=== PATIENT | female | born 1950 | race African-American/Black ===

== ENCOUNTER 2018-07-23 16:08 | Inpatient (IN) | payer MEDICARE, MEDICAID ==
[~2018-07-23] VITALS: Ht 152.4 cm; Wt 65.3 kg
[2018-07-23] MEDS ORDERED: ALBUTEROL (0.083%) 2.5MG/3ML NEB HHN STA (16:23)
[2018-07-23] MEDS ORDERED: METHYLPREDNISOLONE SOD SUCC 125 MG/2 ML VIAL IV STA (16:23)
[2018-07-23] MEDS ORDERED: ACETAMINOPHEN 325MG TABLET PO STA (17:02)
[2018-07-23] MEDS ORDERED: AZITHROMYCIN 500 MG in DEXT 5% WATER 250 ML IV ONE (17:15)
[2018-07-23] MEDS ORDERED: CEFTRIAXONE 1 G PREMIX 50 ML IV ONE (17:15)
[2018-07-23 17:23] LABS: CHLORIDE 100 mEq/L (98-107)
[2018-07-23 17:25] LABS: BASOPHILS % 0.2 % (0.0-2.0); HEMATOCRIT. 31.5 % (36.0-48.0); LYMPHOCYTES % 14.8 % (20.0-50.0); MEAN CORPUSCULAR HEMOGLOBIN 26.9 pg (28.0-32.0); MEAN CORPUSCULAR VOLUME 85.1 fL (81.0-99.0); MEAN PLATELET VOLUME 7.3 fl (7.4-10.4); PLATELET 487 x1000/uL (130-400); RED BLOOD CELL COUNT 3.71 mill/uL (4.2-5.4); RED CELL DISTRIBUTION WIDTH 20.3 % (11.6-14.6)
[2018-07-23] MEDS ORDERED: POTASSIUM CHLORIDE 20MEQ TABLET SR PO ONE ×2 (17:45)
[2018-07-23] MEDS ORDERED: MAGNESIUM/ALUMINUM HYDROXIDE/SIMETHICONE 30ML UDC PO PRN (19:00)
[2018-07-23] MEDS ORDERED: ACETAMINOPHEN 325MG TABLET PO PRN (19:00)
[2018-07-23] MEDS ORDERED: CLONIDINE 0.1MG TABLET PO PRN (19:00)
[2018-07-23] MEDS ORDERED: LORAZEPAM 0.5MG TABLET PO PRN (19:00)
[2018-07-23] MEDS ORDERED: ZOLPIDEM TARTRATE 5MG TABLET PO PRN (19:00)
[2018-07-23] MEDS ORDERED: ONDANSETRON HCL 4MG/2ML INJ IV PRN (19:00)
[2018-07-23] MEDS ORDERED: NA PHOS,M-B/NA PHOS,DI-BA ENEMA 118ML PR PRN (19:00)
[2018-07-23] MEDS ORDERED: DOCUSATE SODIUM 100MG CAPSULE PO PRN (19:00)
[2018-07-23 21:00] VITALS: BP 118/56
[2018-07-23 21:16] LABS: ETHANOL BLOOD < 10 mg/dL
[2018-07-23 21:19] LABS: LDL CHOLESTEROL 47 mg/dL (5-100)
[2018-07-23 21:21] LABS: HDL CHOLESTEROL 57 mg/dL (40-59)
[2018-07-23] MEDS ORDERED: POTASSIUM CHLORIDE 20MEQ TABLET SR PO NR (21:54)
[2018-07-23] MEDS ORDERED: KCL 20MEQ/100ML PREMIX 100 ML IV NR (23:00)
[2018-07-23] MEDS: OSELTAMIVIR 75MG CAPSULE PO SCH (23:06)
[2018-07-23] MEDS: GUAIFENESIN/DM 600MG/30MG ER TAB 12HR PO SCH (23:06)
[2018-07-23] MEDS: FAMOTIDINE 20MG TABLET PO SCH (23:06)
[2018-07-23] MEDS: ASCORBIC ACID 500 MG TABLET PO SCH (23:06)
[2018-07-23] MEDS: TRAMADOL 50MG TABLET PO PRN (23:08)
[2018-07-24] VITALS: BP 157/72
[2018-07-24] MEDS ORDERED: ASPI-1159 PO (00:21)
[2018-07-24] MEDS ORDERED: LOSA50TA20 PO (00:21)
[2018-07-24] MEDS ORDERED: ATOR20TA65 PO (00:21)
[2018-07-24 01:14] LABS: CREATINE KINASE 37 IU/L (26-192)
[2018-07-24 01:16] LABS: CREATINE KINASE MB FRACTION < 1.0 ng/mL (0.5-3.6)
[2018-07-24 04:00] VITALS: BP 127/57
[2018-07-24] MEDS: GUAIFENESIN 200MG/10ML SUGAR FREE UDC PO PRN ×2 (04:45→16:34)
[2018-07-24] MEDS: KETOROLAC 15MG/ML VIAL IV PRN ×2 (04:46→21:40)
[2018-07-24 06:19] LABS: CLARITY URINE TURBID (CLEAR); COLOR URINE YELLOW (YELLOW); KETONES URINE TRACE (NEGATIVE); LEUKOCYTE ESTERASE URINE 3+ (NEGATIVE); NITRITE URINE NEGATIVE (NEGATIVE); OCCULT BLOOD URINE 3+ (NEGATIVE); PH URINE 5.5 (4.5-8.0); PROTEIN URINE 1+ (NEGATIVE); UROBILINOGEN URINE 0.2 E.U./dL (0.2-1.0)
[2018-07-24 06:32] LABS: *AMPHETAMINES SCREEN URINE NEGATIVE (NEGATIVE); *BARBITURATES SCREEN URINE NEGATIVE (NEGATIVE); *BENZODIAZEPINES SCREEN URINE NEGATIVE (NEGATIVE); *COCAINE SCREEN URINE NEGATIVE (NEGATIVE)
[2018-07-24 06:33] LABS: CANNABINOID URINE SCREEN NEGATIVE (NEGATIVE); METHADONE URINE SCREEN NEGATIVE (NEGATIVE); OPIATES URINE SCREEN NEGATIVE (NEGATIVE); PHENCYCLIDINE URINE SCREEN NEGATIVE (NEGATIVE)
[2018-07-24 07:53] LABS: CREATINE KINASE 35 IU/L (26-192)
[2018-07-24 07:55] LABS: CREATINE KINASE MB FRACTION < 1.0 ng/mL (0.5-3.6)
[2018-07-24 08:00] VITALS: BP 127/65
[2018-07-24] MEDS: IPRATROPIUM/ALBUTEROL 0.5-3(2.5)MG/3ML NEB INH PRN ×2 (09:10→14:57)
[2018-07-24] MEDS: ENOXAPARIN 40MG/0.4ML SYR SUBCUT SCH (09:19)
[2018-07-24] MEDS: GUAIFENESIN/DM 600MG/30MG ER TAB 12HR PO SCH ×2 (09:19→20:43)
[2018-07-24] MEDS: FAMOTIDINE 20MG TABLET PO SCH (09:20)
[2018-07-24] MEDS: ZINC SULFATE 220 MG ( 50 ) CAPSULE PO SCH (09:20)
[2018-07-24] MEDS: OSELTAMIVIR 75MG CAPSULE PO SCH (09:20)
[2018-07-24] MEDS: ASPIRIN 325MG EC TABLET PO SCH (09:21)
[2018-07-24] MEDS: ASCORBIC ACID 500 MG TABLET PO SCH ×2 (09:21→20:43)
[2018-07-24] MEDS ORDERED: SODIUM CHLORIDE 0.9% 1000ML BAG (SEPSIS BOLUS) IV ONE (09:45)
[2018-07-24] MEDS ORDERED: SODIUM CHLORIDE 0.9% 1,000 ML IV SCH (09:45)
[2018-07-24 12:00] VITALS: BP 127/54
[2018-07-24] MEDS: CEFTRIAXONE 1 G PREMIX 50 ML IV SCH (14:16)
[2018-07-24] MEDS: AZITHROMYCIN 500 MG in DEXT 5% WATER 250 ML IV SCH (15:00)
[2018-07-24 16:00] VITALS: BP 129/60
[2018-07-24] MEDS ORDERED: CEFTRIAXONE 1,000 MG in DEXTROSE 5% WATER 50 ML IV SCH (17:00)
[2018-07-24] MEDS ORDERED: AZITHROMYCIN 500 MG in DEXT 5% WATER 250 ML IV SCH (18:00)
[2018-07-24 20:00] VITALS: BP 139/69
[2018-07-24] MEDS: OSELTAMIVIR 30MG CAPSULE PO SCH (23:41)
[2018-07-25] VITALS: BP 147/75
[2018-07-25 04:00] VITALS: BP 158/85
[2018-07-25 07:18] LABS: HEMATOCRIT. 23.2 % (36.0-48.0); HEMOGLOBIN. 7.5 g/dL (12.0-16.0); MEAN CORPUSCULAR HEMOGLOBIN 27.3 pg (28.0-32.0); MEAN CORPUSCULAR VOLUME 84.7 fL (81.0-99.0); MEAN PLATELET VOLUME 7.5 fl (7.4-10.4); PLATELET 382 x1000/uL (130-400); RED BLOOD CELL COUNT 2.74 mill/uL (4.2-5.4); RED CELL DISTRIBUTION WIDTH 19.8 % (11.6-14.6)
[2018-07-25 07:28] LABS: CHLORIDE 107 mEq/L (98-107)
[2018-07-25 07:50] VITALS: BP 142/74
[2018-07-25] MEDS: ASCORBIC ACID 500 MG TABLET PO SCH ×2 (08:47→21:17)
[2018-07-25] MEDS: ZINC SULFATE 220 MG ( 50 ) CAPSULE PO SCH (08:47)
[2018-07-25] MEDS: ASPIRIN 325MG EC TABLET PO SCH (08:47)
[2018-07-25] MEDS: GUAIFENESIN/DM 600MG/30MG ER TAB 12HR PO SCH ×2 (08:48→21:17)
[2018-07-25] MEDS: FAMOTIDINE 20MG TABLET PO SCH (08:48)
[2018-07-25] MEDS: OSELTAMIVIR 30MG CAPSULE PO SCH ×2 (08:48→21:17)
[2018-07-25] MEDS: ENOXAPARIN 40MG/0.4ML SYR SUBCUT SCH (09:00)
[2018-07-25] MEDS: KETOROLAC 15MG/ML VIAL IV PRN (09:45)
[2018-07-25] MEDS ORDERED: POTASSIUM CHLORIDE 20MEQ TABLET SR PO NR (12:00)
[2018-07-25 12:10] VITALS: BP 157/80
[2018-07-25] MEDS: GUAIFENESIN 200MG/10ML SUGAR FREE UDC PO PRN (12:14)
[2018-07-25] MEDS: CEFTRIAXONE 1 G PREMIX 50 ML IV SCH (13:19)
[2018-07-25] MEDS: DILTIAZEM HCL 60MG TABLET PO SCH ×2 (13:19→21:19)
[2018-07-25] MEDS: TRAMADOL 50MG TABLET PO PRN (13:28)
[2018-07-25] MEDS: AZITHROMYCIN 500 MG in DEXT 5% WATER 250 ML IV SCH (15:09)
[2018-07-25 15:51] LABS: BASOPHILS % 0.1 % (0.0-2.0); EOSINOPHILS % 0.4 % (0.0-5.0); HEMATOCRIT. 24.5 % (36.0-48.0); HEMOGLOBIN. 7.8 g/dL (12.0-16.0); LYMPHOCYTES % 13.3 % (20.0-50.0); MEAN CORPUSCULAR VOLUME 85.4 fL (81.0-99.0); MEAN PLATELET VOLUME 7.5 fl (7.4-10.4); MONOCYTES % 4.4 % (2.0-8.0); NEUTROPHILS % 81.8 % (40.0-76.0); PLATELET 397 x1000/uL (130-400); RED BLOOD CELL COUNT 2.87 mill/uL (4.2-5.4)
[2018-07-25 16:00] VITALS: BP 136/63
[2018-07-25 20:00] VITALS: BP 139/58
[2018-07-26] VITALS: BP 135/63
[2018-07-26] MEDS: TRAMADOL 50MG TABLET PO PRN (02:10)
[2018-07-26 04:00] VITALS: BP 146/62
[2018-07-26] MEDS: DILTIAZEM HCL 60MG TABLET PO SCH ×3 (06:22→21:10)
[2018-07-26 07:47] LABS: PLATELET ESTIMATE NORMAL
[2018-07-26 08:00] VITALS: BP 145/64
[2018-07-26] MEDS: FAMOTIDINE 20MG TABLET PO SCH (08:39)
[2018-07-26] MEDS: ENOXAPARIN 40MG/0.4ML SYR SUBCUT SCH (08:39)
[2018-07-26] MEDS: ASCORBIC ACID 500 MG TABLET PO SCH ×2 (08:39→21:09)
[2018-07-26] MEDS: OSELTAMIVIR 30MG CAPSULE PO SCH ×2 (08:39→21:09)
[2018-07-26] MEDS: GUAIFENESIN/DM 600MG/30MG ER TAB 12HR PO SCH ×2 (08:39→21:09)
[2018-07-26] MEDS: ZINC SULFATE 220 MG ( 50 ) CAPSULE PO SCH (08:39)
[2018-07-26] MEDS: ASPIRIN 325MG EC TABLET PO SCH (08:39)
[2018-07-26 12:00] VITALS: BP 154/65
[2018-07-26] MEDS: CEFTRIAXONE 1 G PREMIX 50 ML IV SCH (13:03)
[2018-07-26] MEDS: AZITHROMYCIN 500 MG in DEXT 5% WATER 250 ML IV SCH (13:03)
[2018-07-26 16:00] VITALS: BP 133/68
[2018-07-26] MEDS: KETOROLAC 15MG/ML VIAL IV PRN (18:32)
[2018-07-26 20:00] VITALS: BP 132/61
[2018-07-26] MEDS ORDERED: MONTELUKAST SODIUM 10MG TABLET PO NR (20:15)
[2018-07-26] MEDS: IPRATROPIUM/ALBUTEROL 0.5-3(2.5)MG/3ML NEB HHN SCH (20:30)
[2018-07-26] MEDS: METHYLPREDNISOLONE SOD SUCC 40 MG/ML VIAL IV SCH (21:09)
[2018-07-26] MEDS: NICOTINE 21MG PATCH TD SCH (21:09)
[2018-07-27] VITALS: BP 141/65
[2018-07-27] MEDS: IPRATROPIUM/ALBUTEROL 0.5-3(2.5)MG/3ML NEB HHN SCH ×4 (00:28→13:19)
[2018-07-27] MEDS: ACETYLCYSTEINE 100MG/ML 10% VIAL 4ML INH SCH ×2 (00:28→08:58)
[2018-07-27] MEDS: GUAIFENESIN 200MG/10ML SUGAR FREE UDC PO PRN ×2 (00:55→10:25)
[2018-07-27 04:00] VITALS: BP 148/76
[2018-07-27] MEDS: DILTIAZEM HCL 60MG TABLET PO SCH ×2 (05:18→14:04)
[2018-07-27] MEDS: METHYLPREDNISOLONE SOD SUCC 40 MG/ML VIAL IV SCH ×2 (05:18→13:20)
[2018-07-27 08:00] VITALS: BP 152/70
[2018-07-27] MEDS: ASCORBIC ACID 500 MG TABLET PO SCH (09:10)
[2018-07-27] MEDS: GUAIFENESIN/DM 600MG/30MG ER TAB 12HR PO SCH (09:10)
[2018-07-27] MEDS: ASPIRIN 325MG EC TABLET PO SCH (09:10)
[2018-07-27] MEDS: FAMOTIDINE 20MG TABLET PO SCH (09:10)
[2018-07-27] MEDS: ZINC SULFATE 220 MG ( 50 ) CAPSULE PO SCH (09:10)
[2018-07-27] MEDS: OSELTAMIVIR 30MG CAPSULE PO SCH (09:10)
[2018-07-27] MEDS: NICOTINE 21MG PATCH TD SCH (09:10)
[2018-07-27] MEDS: ENOXAPARIN 40MG/0.4ML SYR SUBCUT SCH (09:11)
[2018-07-27 12:00] VITALS: BP 134/76
[2018-07-27] MEDS: CEFTRIAXONE 1 G PREMIX 50 ML IV SCH (13:20)
[2018-07-27] MEDS: AZITHROMYCIN 500 MG in DEXT 5% WATER 250 ML IV SCH (14:03)
[2018-07-27 14:20] VITALS: BP 134/76
[2018-07-27 16:00] VITALS: BP 139/67
[2018-07-27] MEDS ORDERED: BUDESONIDE 0.5MG/2ML NEB HHN SCH (16:00)
[2018-07-27] MEDS ORDERED: MONTELUKAST SODIUM 10MG TABLET PO SCH (17:00)
== END 2018-07-27 16:45 | disposition home or self-care (01) | DRG 871 ==
LOC: ER 16:08 → 5WST 17:52 → EDBEDREQTM 18:01 → EDBEDREQ 18:01 → SUPCPDRO 18:30 → ENRESERV 20:06
PROVIDERS: ADMIT Internal Medicine; ATTEND Internal Medicine
DX: A41.9 Sepsis, unspecified organism (principal); J18.9 Pneumonia, unspecified organism; J96.00 Acute respiratory failure, unspecified whether with hypoxia or hypercapnia; E43 Unspecified severe protein-calorie malnutrition; J45.901 Unspecified asthma with (acute) exacerbation; N39.0 Urinary tract infection, site not specified; J98.11 Atelectasis; E87.6 Hypokalemia; D63.8 Anemia in other chronic diseases classified elsewhere; E78.5 Hyperlipidemia, unspecified; F17.210 Nicotine dependence, cigarettes, uncomplicated; I10 Essential (primary) hypertension; Z79.82 Long term (current) use of aspirin; Z79.899 Other long term (current) drug therapy; Z68.28 Body mass index [BMI] 28.0-28.9, adult
CPT/HCPCS: 36415; 71045; 80048; 80061; 80305; 82550; 82553; 83036; 83605; 83735; 83880; 84484; 87804; 93005; 93306; 93970; 94640; 96365; 96366; 96368; 96375; 97162; 97165; 99291; G0482; J0456; J0696; J1650; J1885; J2920; J2930; J3480; J7050; J7060; J7608; J7611; J7620

== ENCOUNTER → 2018-08-16 | Outpatient (CLI) | payer MEDICARE, MEDICAID ==
[~2018-08-16] MED LIST: ASPI-1159 PO; ATOR20TA65 PO; LOSA50TA20 PO
== END | disposition home or self-care (01) ==
LOC: CT 10:23
PROVIDERS: ATTEND Internal Medicine Critical Care Medicine
DX: J84.10 Pulmonary fibrosis, unspecified (principal)
CPT/HCPCS: 71250

== ENCOUNTER → 2018-10-05 | Outpatient (CLI) | payer MEDICARE, MEDICAID ==
[~2018-10-05] MED LIST changes: +BARIUM SULFATE 450ML ORAL SUSP ONE
== END | disposition home or self-care (01) ==
LOC: CT 07:20
PROVIDERS: ATTEND Internal Medicine Critical Care Medicine
DX: I71.4 Abdominal aortic aneurysm, without rupture (principal); D25.9 Leiomyoma of uterus, unspecified; N85.8 Other specified noninflammatory disorders of uterus
CPT/HCPCS: 71250; 74176

== ENCOUNTER 2018-11-28 05:23 | Inpatient (IN) | payer MEDICARE, MEDICAID ==
[~2018-11-28] VITALS: Ht 154.9 cm; Wt 62.8 kg
[~2018-11-28 05:23] MED LIST changes: +ALBU18HF2 IH; +AMLO10TA80 PO; +ASCO500C15 PO; +ATEN-42 PO; -ATOR20TA65 PO; +ATOR40TA70 PO; -BARIUM SULFATE 450ML ORAL SUSP ONE; +CA C1TAB95 PO; +FAMO20TA8 PO; +FLUT16SP15 BOTHNSTRLS; +LORA10CA PO; +LOSA100T14 PO; -LOSA50TA20 PO; +MONT10TA21 PO; +OMEP20CA10 PO; +SODI4VIA16 IH
[2018-11-28] MEDS ORDERED: LACTATED RINGERS 1,000 ML IV SCH (05:45)
[2018-11-28] MEDS ORDERED: BUPIVACAINE HCL 0.5% (5MG/ML) 50ML ONE (05:50)
[2018-11-28] MEDS ORDERED: METRONIDAZOLE 500 MG PREMIX 100 ML IV ONE (05:50)
[2018-11-28] MEDS ORDERED: LEVOFLOXACIN 500MG PREMIX 100 ML IV ONE (05:50)
[2018-11-28] MEDS ORDERED: SKIN ADHESIVE 0.7 GM EA TOP ONE (05:50)
[2018-11-28] MEDS ORDERED: IOPAMIDOL 20 ML VIAL IT ONE (05:50)
[2018-11-28] MEDS ORDERED: INDOCYANINE GREEN 25 MG VIAL IV ONE (05:51)
[2018-11-28] MEDS ORDERED: ONDANSETRON HCL 4MG/2ML INJ IV PRN (07:00)
[2018-11-28] MEDS ORDERED: ACETAMINOPHEN 650MG SUPP PR PRN (07:00)
[2018-11-28] MEDS ORDERED: BUPIVACAINE HCL 0.5% 290 ML in ON-Q PM015 DRUG DELIV DEVICE 1 EA IR SCH (10:00)
[2018-11-28] MEDS ORDERED: SODIUM CHLORIDE 0.9% 500 ML IV ONE (10:45)
[2018-11-28] MEDS ORDERED: IPRATROPIUM/ALBUTEROL 0.5-3(2.5)MG/3ML NEB HHN PRN (11:15)
[2018-11-28] MEDS ORDERED: DIPHENHYDRAMINE INJ IV PRN (12:15)
[2018-11-28] MEDS ORDERED: ONDANSETRON INJ IV PRN (12:15)
[2018-11-28] MEDS ORDERED: NALOXONE INJ IV PRN (12:15)
[2018-11-28] MEDS: MORPHINE SULFATE 4 MG/ML CPJ (NOT FOR IM USE) IV PRN (12:15)
[2018-11-28] MEDS: MORPHINE PCA 50MG/50ML IV PRN (13:47)
[2018-11-28 16:00] VITALS: BP 115/55
[2018-11-28 16:24] VITALS: BP 115/55
[2018-11-28 16:37] LABS: HEMATOCRIT. 31.7 % (36.0-48.0); HEMOGLOBIN. 10.4 g/dL (12.0-16.0); MEAN PLATELET VOLUME 7.8 fl (7.4-10.4); PLATELET 222 x1000/uL (130-400); RED BLOOD CELL COUNT 3.45 mill/uL (4.2-5.4); RED CELL DISTRIBUTION WIDTH 14.4 % (11.6-14.6)
[2018-11-28 17:37] LABS: PLATELET ESTIMATE NORMAL
[2018-11-28] MEDS: METRONIDAZOLE 500 MG PREMIX 100 ML IV SCH (17:54)
[2018-11-28 20:00] VITALS: BP 115/64
[2018-11-28] MEDS: FAMOTIDINE 20MG/2ML VIAL IV SCH (20:31)
[2018-11-28] MEDS: DEXT 5%/0.45% NACL KCL 20MEQ/L 1,000 ML IV SCH (22:17)
[2018-11-29] VITALS: BP 120/59
[2018-11-29] MEDS: BUDESONIDE 0.5MG/2ML NEB HHN SCH ×3 (01:40→20:52)
[2018-11-29] MEDS: IPRATROPIUM/ALBUTEROL 0.5-3(2.5)MG/3ML NEB HHN SCH ×4 (01:40→20:53)
[2018-11-29] MEDS: METRONIDAZOLE 500 MG PREMIX 100 ML IV SCH ×2 (02:07→11:48)
[2018-11-29 04:00] VITALS: BP 103/46
[2018-11-29] MEDS ORDERED: LEVOFLOXACIN 500MG PREMIX 100 ML IV SCH (06:00)
[2018-11-29 06:45] LABS: BASOPHILS % 0.1 % (0.0-2.0); HEMATOCRIT. 26.8 % (36.0-48.0); HEMOGLOBIN. 8.6 g/dL (12.0-16.0); LYMPHOCYTES % 9.8 % (20.0-50.0); MEAN CORPUSCULAR HEMOGLOBIN 29.7 pg (28.0-32.0); MEAN CORPUSCULAR VOLUME 92.7 fL (81.0-99.0); MEAN PLATELET VOLUME 7.7 fl (7.4-10.4); MONOCYTES % 6.6 % (2.0-8.0); NEUTROPHILS % 83.5 % (40.0-76.0); PLATELET 222 x1000/uL (130-400); RED CELL DISTRIBUTION WIDTH 14.3 % (11.6-14.6)
[2018-11-29 08:00] VITALS: BP 100/49
[2018-11-29] MEDS: NICOTINE 21MG PATCH TD SCH ×2 (08:47→09:00)
[2018-11-29] MEDS: FAMOTIDINE 20MG/2ML VIAL IV SCH ×2 (09:00→21:07)
[2018-11-29] MEDS: DEXT 5%/0.45% NACL KCL 20MEQ/L 1,000 ML IV SCH (11:48)
[2018-11-29 12:00] VITALS: BP 110/54
[2018-11-29 16:00] VITALS: BP 94/41
[2018-11-29 20:00] VITALS: BP_SYST 110; BP_SYST 119; BP_DIAS 48; BP_DIAS 84
[2018-11-30] VITALS: BP 113/54
[2018-11-30] MEDS: DEXT 5%/0.45% NACL KCL 20MEQ/L 1,000 ML IV SCH ×2 (00:22→14:22)
[2018-11-30] MEDS: IPRATROPIUM/ALBUTEROL 0.5-3(2.5)MG/3ML NEB HHN SCH ×4 (02:27→21:55)
[2018-11-30 04:00] VITALS: BP 122/59
[2018-11-30] MEDS: MORPHINE PCA 50MG/50ML IV PRN (07:50)
[2018-11-30 08:00] VITALS: BP 141/66
[2018-11-30] MEDS: BUDESONIDE 0.5MG/2ML NEB HHN SCH ×2 (08:30→21:51)
[2018-11-30] MEDS: FAMOTIDINE 20MG/2ML VIAL IV SCH ×2 (08:58→20:59)
[2018-11-30] MEDS: NICOTINE 21MG PATCH TD SCH (08:58)
[2018-11-30 11:50] VITALS: BP 139/65
[2018-11-30] MEDS: GUAIFENESIN 600MG ER TABLET PO SCH ×2 (14:21→20:59)
[2018-11-30 16:00] VITALS: BP 133/66
[2018-11-30 20:00] VITALS: BP 141/63
[2018-11-30] MEDS: ACETYLCYSTEINE 100MG/ML 10% VIAL 4ML INH SCH (21:51)
[2018-12-01] VITALS (8 sets, daily range): BP systolic 116–145; BP diastolic 61–70
[2018-12-01] MEDS: IPRATROPIUM/ALBUTEROL 0.5-3(2.5)MG/3ML NEB HHN SCH ×4 (03:00→20:09)
[2018-12-01] MEDS: DEXT 5%/0.45% NACL KCL 20MEQ/L 1,000 ML IV SCH ×2 (04:07→08:57)
[2018-12-01] MEDS: NICOTINE 21MG PATCH TD SCH (08:50)
[2018-12-01] MEDS: GUAIFENESIN 600MG ER TABLET PO SCH ×2 (08:50→20:32)
[2018-12-01] MEDS: FAMOTIDINE 20MG/2ML VIAL IV SCH ×2 (08:50→20:33)
[2018-12-01] MEDS: ACETYLCYSTEINE 100MG/ML 10% VIAL 4ML INH SCH ×2 (09:12→14:23)
[2018-12-01] MEDS ORDERED: HYDR-4001 MT (20:03)
[2018-12-01] MEDS: BUDESONIDE 0.5MG/2ML NEB HHN SCH (20:09)
[2018-12-01] MEDS: MORPHINE SULFATE 4 MG/ML CPJ (NOT FOR IM USE) IV PRN (20:33)
[2018-12-01] MEDS ORDERED: HYDROCODONE/ACETAMINOPHEN 5/325MG TABLET PO PRN (21:30)
== END 2018-12-01 22:40 | disposition home or self-care (01) | DRG 333 ==
LOC: OR 05:23 → 6EST 05:24
PROVIDERS: ADMIT Surgery; ATTEND Surgery
PROC: 0T768DZ Dilation of Right Ureter with Intraluminal Device, Via Natural or Artificial Opening Endoscopic (ICD-10-PCS; principal; 2018-11-28)
PROC: 0DBP0ZZ Excision of Rectum, Open Approach (ICD-10-PCS; 2018-11-28)
PROC: 8E0W4CZ Robotic Assisted Procedure of Trunk Region, Percutaneous Endoscopic Approach (ICD-10-PCS; 2018-11-28)
PROC: BT1D1ZZ Fluoroscopy of Right Kidney, Ureter and Bladder using Low Osmolar Contrast (ICD-10-PCS; 2018-11-28)
DX: K57.32 Diverticulitis of large intestine without perforation or abscess without bleeding (principal); N32.1 Vesicointestinal fistula; I50.32 Chronic diastolic (congestive) heart failure; J84.9 Interstitial pulmonary disease, unspecified; K56.7 Ileus, unspecified; D64.9 Anemia, unspecified; F17.210 Nicotine dependence, cigarettes, uncomplicated; N32.3 Diverticulum of bladder; J45.909 Unspecified asthma, uncomplicated; Z53.31 Laparoscopic surgical procedure converted to open procedure; I11.0 Hypertensive heart disease with heart failure; Z98.51 Tubal ligation status; Z82.49 Family history of ischemic heart disease and other diseases of the circulatory system; Z91.012 Allergy to eggs; Z91.018 Allergy to other foods; Z79.82 Long term (current) use of aspirin; Z79.899 Other long term (current) drug therapy
CPT/HCPCS: 36415; 71045; 74430; 80048; 84132; 86850; 86900; 88305; 88307; 88329; 94002; 97116; 97162; 97166; 97530; C2617; J0330; J1100; J1956; J2250; J2270; J2370; J2405; J2704; J2710; J3010; J3105; J3490; J7050; J7517; J7608; J7620; J7626; Q9957; Q9963; Q9966; Q9968

== ENCOUNTER 2018-12-02 14:39 | Inpatient (IN) | payer MEDICARE, MEDICAID ==
[~2018-12-02] VITALS: Ht 162.6 cm; Wt 59.4 kg
[~2018-12-02 14:39] MED LIST changes: +HYDR-4001 MT
[2018-12-02] MEDS ORDERED: SODIUM CHLORIDE 0.9% 1000ML BAG (SEPSIS BOLUS) IV ONE (15:15)
[2018-12-02] MEDS ORDERED: ONDANSETRON HCL 4MG/2ML INJ IV ONE ×2 (15:15→20:45)
[2018-12-02 15:29] LABS: BASOPHILS % 0.2 % (0.0-2.0); EOSINOPHILS % 2.8 % (0.0-5.0); HEMATOCRIT. 34.6 % (36.0-48.0); HEMOGLOBIN. 11.4 g/dL (12.0-16.0); LYMPHOCYTES % 15.9 % (20.0-50.0); MEAN CORPUSCULAR HEMOGLOBIN 29.9 pg (28.0-32.0); MEAN CORPUSCULAR VOLUME 90.6 fL (81.0-99.0); MEAN PLATELET VOLUME 7.3 fl (7.4-10.4); MONOCYTES % 6.6 % (2.0-8.0); NEUTROPHILS % 74.5 % (40.0-76.0); PLATELET 411 x1000/uL (130-400); RED BLOOD CELL COUNT 3.82 mill/uL (4.2-5.4); RED CELL DISTRIBUTION WIDTH 13.9 % (11.6-14.6)
[2018-12-02 15:36] LABS: CHLORIDE 106 mEq/L (98-107)
[2018-12-02 15:44] LABS: PROTHROMBIN TIME 10.2 sec (9.6-11.0)
[2018-12-02] MEDS ORDERED: PIPERACILLIN/TAZ 3.375G PREMIX 50 ML IV ONE (15:45)
[2018-12-02] MEDS ORDERED: MORPHINE SULFATE 4 MG/ML CPJ (NOT FOR IM USE) IV ONE (15:45)
[2018-12-02 15:46] LABS: CLARITY URINE TURBID (CLEAR); COLOR URINE ORANGE (YELLOW); KETONES URINE 2+ (NEGATIVE); LEUKOCYTE ESTERASE URINE 3+ (NEGATIVE); NITRITE URINE NEGATIVE (NEGATIVE); OCCULT BLOOD URINE 3+ (NEGATIVE); PH URINE 8.5 (4.5-8.0); PROTEIN URINE 2+ (NEGATIVE); SPECIFIC GRAVITY URINE 1.014 (1.005-1.030); UROBILINOGEN URINE 0.2 E.U./dL (0.2-1.0)
[2018-12-02 22:15] VITALS: BP 157/80
[2018-12-02 23:16] VITALS: BP 157/80
[2018-12-02] MEDS ORDERED: ONDANSETRON HCL 4MG/2ML INJ IV PRN (23:30)
[2018-12-02] MEDS ORDERED: HYDROCODONE/ACETAMINOPHEN 5/325MG TABLET PO PRN ×2 (23:30→23:45)
[2018-12-02] MEDS ORDERED: ACETAMINOPHEN 325MG TABLET PO PRN ×2 (23:30→23:45)
[2018-12-02] MEDS ORDERED: MAGNESIUM/ALUMINUM HYDROXIDE/SIMETHICONE 30ML UDC PO PRN (23:45)
[2018-12-02] MEDS ORDERED: NA PHOS,M-B/NA PHOS,DI-BA ENEMA 118ML PR PRN (23:45)
[2018-12-02] MEDS ORDERED: PIPERACILLIN/TAZ 3.375G PREMIX 50 ML IV SCH (23:45)
[2018-12-02] MEDS ORDERED: ACETAMINOPHEN 650MG/20.3ML UDC GT PRN (23:45)
[2018-12-02] MEDS ORDERED: DIPHENHYDRAMINE 50MG/ML VIAL IV PRN (23:45)
[2018-12-02] MEDS ORDERED: ACETAMINOPHEN 650MG SUPP PR PRN (23:45)
[2018-12-02] MEDS ORDERED: GUAIFENESIN 200MG/10ML SUGAR FREE UDC PO PRN (23:45)
[2018-12-02] MEDS ORDERED: CLONIDINE 0.1MG TABLET PO PRN (23:45)
[2018-12-02] MEDS ORDERED: DOCUSATE SODIUM 100MG CAPSULE PO PRN (23:45)
[2018-12-03] VITALS (7 sets, daily range): BP systolic 136–164; BP diastolic 66–82
[2018-12-03] MEDS ORDERED: PIPERACILLIN/TAZ 3.375G PREMIX 50 ML IV SCH
[2018-12-03] MEDS: HYDROCODONE/ACETAMINOPHEN 10/325MG TABLET PO PRN ×4 (00:17→20:27)
[2018-12-03] MEDS: SODIUM CHLORIDE 0.45% 1,000 ML IV SCH ×2 (01:41→19:27)
[2018-12-03] MEDS: ONDANSETRON HCL 4MG/2ML INJ IV PRN ×2 (02:06→11:42)
[2018-12-03] MEDS: PIPERACILLIN/TAZ 3.375G PREMIX 50 ML IV SCH ×4 (03:25→20:27)
[2018-12-03] MEDS: SODIUM CHLORIDE 0.9% INJ 3ML FLUSH IVF SCH ×2 (05:52→13:50)
[2018-12-03 06:01] LABS: *AMPHETAMINES SCREEN URINE NEGATIVE (NEGATIVE); *BARBITURATES SCREEN URINE NEGATIVE (NEGATIVE); *BENZODIAZEPINES SCREEN URINE NEGATIVE (NEGATIVE); *COCAINE SCREEN URINE NEGATIVE (NEGATIVE); CANNABINOID URINE SCREEN NEGATIVE (NEGATIVE); METHADONE URINE SCREEN NEGATIVE (NEGATIVE)
[2018-12-03 06:02] LABS: OPIATES URINE SCREEN PRESUMTIVE POSITIVE (NEGATIVE); PHENCYCLIDINE URINE SCREEN NEGATIVE (NEGATIVE)
[2018-12-03 06:33] LABS: BASOPHILS % 0.4 % (0.0-2.0); EOSINOPHILS % 9.2 % (0.0-5.0); HEMATOCRIT. 31.6 % (36.0-48.0); HEMOGLOBIN. 10.5 g/dL (12.0-16.0); LYMPHOCYTES % 23.1 % (20.0-50.0); MEAN CORPUSCULAR HEMOGLOBIN 30.6 pg (28.0-32.0); MEAN CORPUSCULAR VOLUME 92.5 fL (81.0-99.0); MEAN PLATELET VOLUME 7.5 fl (7.4-10.4); MONOCYTES % 11.5 % (2.0-8.0); NEUTROPHILS % 55.8 % (40.0-76.0); PLATELET 359 x1000/uL (130-400); RED BLOOD CELL COUNT 3.42 mill/uL (4.2-5.4); RED CELL DISTRIBUTION WIDTH 14.3 % (11.6-14.6)
[2018-12-03 07:32] LABS: CHLORIDE 108 mEq/L (98-107)
[2018-12-03 07:40] LABS: HDL CHOLESTEROL 36 mg/dL (40-59)
[2018-12-03 07:43] LABS: LDL CHOLESTEROL 60 mg/dL (5-100)
[2018-12-03] MEDS: ENOXAPARIN 40MG/0.4ML SYR SUBCUT SCH (09:24)
[2018-12-03] MEDS ORDERED: MAGNESIUM CITRATE 300ML SOLUTION PO NR (13:00)
[2018-12-04] VITALS: BP 126/65
[2018-12-04] MEDS: HYDROCODONE/ACETAMINOPHEN 10/325MG TABLET PO PRN ×2 (00:48→09:49)
[2018-12-04] MEDS: SODIUM CHLORIDE 0.9% INJ 3ML FLUSH IVF SCH ×2 (00:49→05:58)
[2018-12-04] MEDS: PIPERACILLIN/TAZ 3.375G PREMIX 50 ML IV SCH ×2 (02:07→09:46)
[2018-12-04 04:00] VITALS: BP 131/76
[2018-12-04 08:00] VITALS: BP 117/69
[2018-12-04] MEDS ORDERED: AMLODIPINE 10MG TABLET PO SCH (09:00)
[2018-12-04] MEDS ORDERED: ATENOLOL 25MG TABLET PO SCH (09:00)
[2018-12-04] MEDS ORDERED: OMEPRAZOLE 20MG CAPSULE EXTENDED RELEASE PO SCH (09:00)
[2018-12-04] MEDS: ENOXAPARIN 40MG/0.4ML SYR SUBCUT SCH (09:46)
[2018-12-04] MEDS: SODIUM CHLORIDE 0.45% 1,000 ML IV SCH (09:50)
[2018-12-04 12:00] VITALS: BP 140/63
[2018-12-04 13:09] VITALS: BP 140/63
== END 2018-12-04 14:45 | disposition home health service (06) | DRG 871 ==
LOC: ER 14:59 → 5WST 21:02 → EDBEDREQ 21:09 → EDBEDREQTM 21:09 → EDBEDREQSVC 21:09 → ENRESERV 21:22
PROVIDERS: ADMIT Family Medicine; ATTEND Family Medicine
DX: A41.9 Sepsis, unspecified organism (principal); E43 Unspecified severe protein-calorie malnutrition; K65.1 Peritoneal abscess; K65.9 Peritonitis, unspecified; K91.89 Other postprocedural complications and disorders of digestive system; K56.7 Ileus, unspecified; I10 Essential (primary) hypertension; D63.8 Anemia in other chronic diseases classified elsewhere; E78.5 Hyperlipidemia, unspecified; J44.9 Chronic obstructive pulmonary disease, unspecified; Y83.8 Other surgical procedures as the cause of abnormal reaction of the patient, or of later complication, without mention of misadventure at the time of the procedure; E78.00 Pure hypercholesterolemia, unspecified; F17.200 Nicotine dependence, unspecified, uncomplicated; J45.909 Unspecified asthma, uncomplicated; Z91.012 Allergy to eggs; Z91.018 Allergy to other foods; Z79.82 Long term (current) use of aspirin; Z79.899 Other long term (current) drug therapy; Z90.49 Acquired absence of other specified parts of digestive tract; Z68.22 Body mass index [BMI] 22.0-22.9, adult
CPT/HCPCS: 36415; 71045; 74018; 74177; 80061; 80305; 83605; 84145; 84484; 93005; 96374; 97162; 97535; 99285; J1650; J2270; J2405; J2543; J7030; Q9967

== ENCOUNTER → 2018-12-14 | Outpatient (CLI) | payer MEDICARE, MEDICAID ==
[~2018-12-14] MED LIST changes: -ASCO500C15 PO; -ASPI-1159 PO; +DIATRIZOATE MEGLUMINE 300ML INFUS BTL UR ONE; -FAMO20TA8 PO; -LORA10CA PO; -LOSA100T14 PO; +LOSA100T32 PO; -MONT10TA21 PO; -OMEP20CA10 PO
== END | disposition home or self-care (01) ==
LOC: RAD 09:22
PROVIDERS: ATTEND Urology
DX: N32.1 Vesicointestinal fistula (principal)
CPT/HCPCS: 74430; Q9958; A4315

== ENCOUNTER 2019-04-19 08:41 | Emergency (ER) | payer MEDICARE, MEDICAID ==
[~2019-04-19] VITALS: Ht 175.3 cm; Wt 63.0 kg
[~2019-04-19 08:41] MED LIST changes: -DIATRIZOATE MEGLUMINE 300ML INFUS BTL UR ONE
[2019-04-19] MEDS ORDERED: OXYCODONE HCL/ACETAMINOPHEN 5/325MG TABLET PO ONE (09:30)
[2019-04-19 10:20] LABS: CLARITY URINE CLOUDY (CLEAR); COLOR URINE YELLOW (YELLOW); KETONES URINE NEGATIVE (NEGATIVE); LEUKOCYTE ESTERASE URINE NEGATIVE (NEGATIVE); NITRITE URINE NEGATIVE (NEGATIVE); OCCULT BLOOD URINE TRACE (NEGATIVE); PH URINE 5.5 (4.5-8.0); PROTEIN URINE NEGATIVE (NEGATIVE); SPECIFIC GRAVITY URINE 1.015 (1.005-1.030); UROBILINOGEN URINE 0.2 E.U./dL (0.2-1.0)
[2019-04-19 12:02] LABS: BASOPHILS % 0.8 % (0.0-2.0); EOSINOPHILS % 0.4 % (0.0-5.0); HEMATOCRIT. 38.4 % (36.0-48.0); LYMPHOCYTES % 36.8 % (20.0-50.0); MEAN CORPUSCULAR HEMOGLOBIN 30.3 pg (28.0-32.0); MEAN CORPUSCULAR VOLUME 89.6 fL (81.0-99.0); MEAN PLATELET VOLUME 8.1 fl (7.4-10.4); MONOCYTES % 12.6 % (2.0-8.0); NEUTROPHILS % 49.4 % (40.0-76.0); PLATELET 133 x1000/uL (130-400); RED BLOOD CELL COUNT 4.28 mill/uL (4.2-5.4); RED CELL DISTRIBUTION WIDTH 15.4 % (11.6-14.6)
[2019-04-19 12:07] LABS: CHLORIDE 104 mEq/L (98-107)
[2019-04-19 12:43] VITALS: BP 153/70
== END 2019-04-19 12:53 | disposition home or self-care (01) ==
LOC: ER 08:44
DX: M54.9 Dorsalgia, unspecified (principal); J45.909 Unspecified asthma, uncomplicated; E78.00 Pure hypercholesterolemia, unspecified; I10 Essential (primary) hypertension; Z91.018 Allergy to other foods; Z98.890 Other specified postprocedural states
CPT/HCPCS: 36415; 76770; 81003; 99284